=== PATIENT | male | born 1955 | race Caucasian/White ===

== ENCOUNTER → 2019-01-09 | Outpatient (CLI) | payer OTHER ==
[~2019-01-09] MED LIST: DIATRIZOATE MEGL/DIATRIZOA SOD 30 ML BTL PO ONE; IOPAMIDOL 370 MG/ML 200 ML INFUS..BTL INJ ONE; SODIUM CHLORIDE 0.9% 50ML 50 ML ONE
[2019-01-09 15:20] LABS: BLOOD UREA NITROGEN 12 mg/dL (7-26); BUN/CREATININE RATIO 11 (6-25); CREATININE, SERUM 1.06 mg/dL (0.72-1.25); EST GLOMERULAR FILTRATION RATE > 60 ML/MIN (60-)
--- NOTE | 2019-01-09 16:56 | Diagnostic Imaging Report ---
EXAM: CT Abdomen and Pelvis WITH contrast INDICATION: Diverticulosis, left lower quadrant abdominal pain. COMPARISON: None. TECHNIQUE: Abdomen and pelvis were scanned utilizing a multidetector helical scanner from the lung base to the pubic symphysis after administration of IV contrast. Coronal and sagittal reformations were obtained. Routine protocol was performed. Scan was performed when during portal venous phase. IV CONTRAST: 100 cc of Isovue 370. ORAL CONTRAST: Gastrografin COMPLICATIONS: None RADIATION DOSE: Total DLP: 855.9 mGy*cm Dose modulation, iterative reconstruction, and/or weight based adjustment of the mA/kV was utilized to reduce the radiation dose to as low as reasonably achievable. FINDINGS: LINES and TUBES: None. LOWER THORAX: Unremarkable HEPATOBILIARY: No evidence of focal lesion. No biliary ductal dilation. Status post cholecystectomy. SPLEEN: No splenomegaly. Subcentimeter hypodensities within the spleen are too small to characterize. PANCREAS: No focal masses or ductal dilatation. ADRENALS: No adrenal nodules KIDNEYS/URETERS: Kidneys enhance symmetrically. No evidence of hydronephrosis, solid mass, or stone. Mild nonspecific bilateral perinephric stranding. GI TRACT: No evidence of wall thickening or distension. Per the patient, the appendix is absent. Mild sigmoid diverticulosis without CT evidence of diverticulitis. PELVIC ORGANS/BLADDER: The bladder is partially decompressed. The prostate is enlarged, measuring up to 6 cm. LYMPH NODES: No lymphadenopathy. There are mildly prominent mesenteric lymph nodes, measuring up to 6 mm short axis. VESSELS: There is reflux of contrast into the IVC, which may reflect right heart dysfunction. Scattered mild atherosclerotic changes within the abdominal aorta and branch vessels. PERITONEUM / RETROPERITONEUM: No free air or fluid. There is mild mesenteric stranding. BONES AND SOFT TISSUES: No acute osseous abnormality. No suspicious lytic or blastic lesions. CONCLUSION: Mild sigmoid diverticulosis without CT evidence of diverticulitis. Mild nonspecific mesenteric stranding. Prominent mesenteric lymph nodes, not meeting size criteria for enlargement. Findings may reflect mesenteric panniculitis or other infectious/inflammatory etiology. No specific evidence of lymphoma. Follow-up CT may be considered in 6 months. Signed by: Dr. Fredis Ac MD on 01/09/2019 4:52 PM
== END ==
LOC: CT 14:15
PROVIDERS: ATTEND Internal Medicine Gastroenterology
DX: R10.32 Left lower quadrant pain (principal); K57.30 Diverticulosis of large intestine without perforation or abscess without bleeding; I10 Essential (primary) hypertension; E66.9 Obesity, unspecified; Z71.3 Dietary counseling and surveillance
CPT/HCPCS: 36415; 74177; 82565; 84520; Q9967